=== PATIENT | female | born 1990 | race Hispanic/Latino ===

== ENCOUNTER 2018-06-25 11:55 | Emergency (ER) | payer BC ==
--- OUTSIDE RECORDS SUMMARY | 2018-06-25 11:58 | XMS REPORT | Summary of Care ---
Author Author [facility] Organization [facility] Address Unknown Phone Unavailable Encounter ARYAN Mendez(ALVARADO) [id number] Date(s): 06/10/17 - 06/13/17 [facility] [address] [place] [address]- [phone] Final: Torsion of right fallopian tube Final: Torsion of left ovary and ovarian pedicle Discharge Disposition: Home or Self Care Attending Physician: Maciej Corea MD Admitting Physician: Maciej Corea MD Referring Physician: Maciej Corea MD Vital Signs Most recent to 1 2 3 4 oldest [Reference Range]: Height 162.56 cm (06/10/17 6:50 PM) Temperature Oral 98.4 DegF 98.4 DegF 98.5 DegF [96.4-99.1 DegF] (06/13/17 7:21 AM) (06/13/17 3:57 AM) (06/12/17 11:31 PM) Blood Pressure 96/57 mmHg 96/63 mmHg 93/59 mmHg [90-140/60-90 mmHg] (06/13/17 7:21 AM) (06/13/17 3:57 AM) (06/12/17 11:31 PM) Respiratory Rate 14 BRMIN 16 BRMIN 16 BRMIN [14-20 BRMIN] (06/13/17 7:47 AM) (06/13/17 7:21 AM) (06/13/17 3:57 AM) Peripheral Pulse 78 bpm 77 bpm 84 bpm Rate [60-100 bpm] (06/13/17 7:21 AM) (06/13/17 3:57 AM) (06/12/17 11:31 PM) Weight 53 kg 53 kg 53 kg 53 kg (06/10/17 6:50 PM) (06/10/17 6:49 PM) (06/10/17 6:48 PM) (06/10/17 6:48 PM) Body Mass Index 20.06 m2 (06/10/17 6:50 PM) Problem List Condition Effective Dates Status Health Status Informant S/p Active laparotomy(Confirmed ) (Confirmed) 10/14/15 - 10/20/15 Resolved Allergies, Adverse Reactions, Alerts Substance Reaction Severity Status NKDA Active Medications ceFAZolin (ANES) Route: IV, Drug form: INJ, ONCE, Stop date: 06/10/17 22:20:00 CDT Start Date: 06/10/17 Stop Date: 06/10/17 Status: Completed D5W in Lactated Ringers 1,000 mL 1,000 mL, Rate: 125 ml/hr, Infuse over: 8 hr, Route: IV, Dosing Weight 53 kg, To christopher Volume: 1,000, Start date: 06/10/17 18:49:00 CDT, Duration: 30 day, Stop norma e: 07/10/17 18:48:00 LABOR CONCILIATOR Start Date: 06/10/17 Stop Date: 06/12/17 Status: Discontinued dexamethasone (ANES) Route: IV, Drug form: INJ, ONCE, Stop date: 06/10/17 22:20:00 CDT Start Date: 06/10/17 Stop Date: 06/10/17 Status: Completed ePHEDrine (ANES) Route: IV, Drug form: INJ, ONCE, Stop date: 06/10/17 22:20:00 CDT Start Date: 06/10/17 Stop Date: 06/10/17 Status: Completed fentaNYL (ANES) Route: IV, Drug form: INJ, ONCE, Stop date: 06/10/17 22:20:00 CDT Start Date: 06/10/17 Stop Date: 06/10/17 Status: Completed glycopyrrolate (ANES) Route: IV, Drug form: INJ, ONCE, Stop date: 06/10/17 22:20:00 CDT Start Date: 06/10/17 Stop Date: 06/10/17 Status: Completed Lactated Ringers 1,000 mL 1,000 mL, Rate: 125 ml/hr, Infuse over: 8 hr, Route: IV, Dosing Weight 53 kg, To christopher Volume: 1,000, Start date: 06/10/17 21:46:00 CDT, Duration: 30 day, Stop norma e: 07/10/17 21:45:00 LABOR CONCILIATOR Start Date: 06/10/17 Stop Date: 06/12/17 Status: Discontinued lidocaine (ANES) Route: IV, Drug form: INJ, ONCE, Stop date: 06/10/17 22:20:00 CDT Start Date: 06/10/17 Stop Date: 06/10/17 Status: Completed LR 1000 mL INJ (ANES) Route: IV, Total Volume: 1,000, Start date: 06/10/17 20:36:00 CDT, Stop date: 21:36:00 CDT Start Date: 06/10/17 Stop Date: 06/10/17 Status: Completed Macrobid 100 mg, 1 cap, Route: PO, Drug form: CAP, [id number], Dosing Weight 53, kg, Start d ate: 06/11/17 16:00:00 CDT, Duration: 30 day, Stop date: 07/11/17 4:00:00 LABOR CONCILIATOR Notes: Not recommended for patients with CrCl<50 ml/min (Same as:Macrobid) With food. Start Date: 06/11/17 Stop Date: 06/13/17 Status: Discontinued midazolam (ANES) Route: IV, Drug form: SOLN, ONCE, Stop date: 06/10/17 21:56:00 CDT Start Date: 06/10/17 Stop Date: 06/10/17 Status: Completed MORPhine sulfate FLAME CHANNELER 30 mg/30 ml INJ syringe 30 mg 30 mg, 30 mL, Route: IV, Initial Loading Dose: 2 mg, FLAME CHANNELER Dose: 1 mg, FLAME CHANNELER Lockou t: 10 minutes, Continuous Basal Rate: 0 mg, 4 Hour Limit (In MG): 30, Drug Form: INJ, Continuous, Start date: 06/10/17 22:00:00 CDT, Duration: 30 day, Stop date: 07/10/17... Notes: Dose: Delay: Basal rate: 4hr limit:( Same as:Norrisi-Chris) Start Date: 06/10/17 Stop Date: 06/12/17 Status: Discontinued naloxone 0.04 mg, 0.04 mL, Route: IVP, Drug form: INJ, Q2MIN, Dosing Weight 53, kg, PRN N arcotic Reversal, Start date: 06/10/17 21:46:00 CDT, Duration: 30 day, Stop date : 07/10/17 20:45:00 LABOR CONCILIATOR Notes: (Same as: Devika) MEDICATION WASTE Product Size: 2 mgProduct Was lauren: ___ mg Start Date: 06/10/17 Stop Date: 06/12/17 Status: Discontinued neostigmine (ANES) Route: IV, Drug form: INJ, ONCE, Stop date: 06/10/17 22:20:00 CDT Start Date: 06/10/17 Stop Date: 06/10/17 Status: Completed ondansetron (ANES) Route: IV, Drug form: INJ, ONCE, Stop date: 06/10/17 22:20:00 CDT Start Date: 06/10/17 Stop Date: 06/10/17 Status: Completed propofol (ANES) Route: IV, Drug form: INJ, ONCE, Stop date: 06/10/17 22:20:00 CDT Start Date: 06/10/17 Stop Date: 06/10/17 Status: Completed rocuronium (ANES) Route: IV, Drug form: INJ, ONCE, Stop date: 06/10/17 22:20:00 CDT Start Date: 06/10/17 Stop Date: 06/10/17 Status: Completed sodium chloride 0.9% INJ 250 mL 250 mL, Rate: service representative for use with blood product administration, Dosing Weight 5 3, kg, Route: IV, Total Volume: 250, Start Date: 06/10/17 17:54:00 CDT, Duration : 30 day, Stop date: 07/10/17 17:53:00 LABOR CONCILIATOR, Replace Every: 24 hr Start Date: 06/10/17 Stop Date: 06/13/17 Status: Discontinued succinylcholine (ANES) Route: IV, Drug form: INJ, ONCE, Stop date: 06/10/17 22:20:00 CDT Start Date: 06/10/17 Stop Date: 06/10/17 Status: Completed Tylenol with Codeine #3 oral tablet 2 tab, PO, Q4H, PRN Pain Score 4-6, # 30 tab, 0 Refill(s) Start Date: 06/13/17 Stop Date: 06/13/17 Status: Completed Tylenol with Codeine #3 oral tablet 1 - 2 tablets, PO, Daily, PRN Pain, X 30 day, # 60 tab, 0 Refill(s) Start Date: 06/13/17 Stop Date: 07/13/17 Status: Ordered Tylenol with Codeine #3 oral tablet 2 tab, Route: PO, Drug Form: TAB, Dosing Weight 53, kg, Q4H, PRN Pain Score 4-6, Start date: 06/12/17 9:22:00 CDT, Duration: 30 day, Stop date: 07/12/17 9:21:00 LABOR CONCILIATOR Notes: Do not exceed 4gm/day of acetaminophen. (Same as: Tylenol with Codeine # 3) Start Date: 06/12/17 Stop Date: 06/13/17 Status: Discontinued Zofran 4 mg, 2 mL, Route: IVP, Drug form: INJ, Q4H, Dosing Weight 53, kg, PRN Nausea, S tart date: 06/12/17 12:24:00 CDT, Duration: 30 day, Stop date: 07/12/17 12:23:00 LABOR CONCILIATOR Notes: (Same as: Zofran) MEDICATION WASTE Product Size: 4 mgProduct Was lauren: ___ mg Start Date: 06/12/17 Stop Date: 06/13/17 Status: Discontinued Zofran 4 mg, 2 mL, Route: IVP, Drug form: INJ, Q6H, Dosing Weight 53, kg, PRN Nausea, S tart date: 06/11/17 10:07:00 CDT, Duration: 30 day, Stop date: 07/11/17 10:06:00 LABOR CONCILIATOR Notes: (Same as: Zofran) MEDICATION WASTE Product Size: 4 mgProduct Was lauren: ___ mg Start Date: 06/11/17 Stop Date: 06/12/17 Status: Discontinued Results BLOOD BANK RESULTS Most recent to 1 2 oldest [Reference Range]: ABO/Rh O POS *Unknown* (06/10/17 6:51 PM) Antibody Scrn Negative (06/10/17 6:51 PM) RBC product Product available 1 (06/10/17 5:54 PM) 1Result Comment: 06/10/2017 20:05 [id number] Called to Yareli Hamlin at 06/10/2017 20:05 by Dayna Stock. ELECTROLYTES Most recent to 1 2 oldest [Reference Range]: Sodium Lvl [135-145 138 mEq/L 133 mEq/L mEq/L] (06/11/17 6:48 AM) *LOW* (06/10/17 6:51 PM) Potassium Lvl 3.3 mEq/L 3.9 mEq/L [3.5-5.1 mEq/L] *LOW* (06/10/17 6:51 PM) (06/11/17 6:48 AM) Chloride Lvl [95-109 103 mEq/L 99 mEq/L mEq/L] (06/11/17 6:48 AM) (06/10/17 6:51 PM) CO2 [24-32 mEq/L] 27 mEq/L 25 mEq/L (06/11/17 6:48 AM) (06/10/17 6:51 PM) AGAP [10.0-20.0 11.3 mEq/L 12.9 mEq/L mEq/L] (06/11/17 6:48 AM) (06/10/17 6:51 PM) CHEM PANEL Most recent to 1 2 oldest [Reference Range]: Creatinine Lvl 0.78 mg/dL 0.54 mg/dL [0.50-1.40 mg/dL] (06/11/17 6:48 AM) (06/10/17 6:51 PM) eGFR 105 mL/min/1.73m2 1 131 mL/min/1.73m2 2 *NA* *NA* (06/11/17 7:00 AM) (06/10/17 6:51 PM) BUN [7-22 mg/dL] 8 mg/dL 10 mg/dL (06/11/17 6:48 AM) (06/10/17 6:51 PM) Glucose Lvl [70-99 102 mg/dL 107 mg/dL mg/dL] *HI* *HI* (06/11/17 6:48 AM) (06/10/17 6:51 PM) Calcium Lvl 8.1 mg/dL 8.3 mg/dL [8.5-10.5 mg/dL] *LOW* *LOW* (06/11/17 6:48 AM) (06/10/17 6:51 PM) 1Result Comment: The eGFR is calculated using the CKD-EPI formula. In most young, healthy individuals the eGFR will be >90 mL/min/1.73m2. The eGFR declines with age. An eGFR of 60-89 may be normal in some populations, particularly the elderly, for whom the CKD-EPI formula has not been extensively validated. Use of the eGFR is not recommended in the following populations: Individuals with unstable creatinine concentrations, including patients and those with serious co-morbid conditions. Patients with extremes in muscle mass or diet. The data above are obtained from the National Kidney Disease Education Program ( NKDEP) which additionally recommends that when the eGFR is used in patients with extremes of body mass index for purposes of drug dosing, the eGFR should be mul tiplied by the estimated BMI. 2Result Comment: The eGFR is calculated using the CKD-EPI formula. In most young, healthy individuals the eGFR will be >90 mL/min/1.73m2. The eGFR declines with age. An eGFR of 60-89 may be normal in some populations, particularly the elderly, for whom the CKD-EPI formula has not been extensively validated. Use of the eGFR is not recommended in the following populations: Individuals with unstable creatinine concentrations, including patients and those with serious co-morbid conditions. Patients with extremes in muscle mass or diet. The data above are obtained from the National Kidney Disease Education Program ( NKDEP) which additionally recommends that when the eGFR is used in patients with extremes of body mass index for purposes of drug dosing, the eGFR should be mul tiplied by the estimated BMI. HEMATOLOGY Most recent to 1 2 oldest [Reference Range]: WBC [3.7-10.4 K/CMM] 9.9 K/CMM 7.9 K/CMM (06/11/17 7:00 AM) (06/10/17 6:51 PM) RBC [4.20-5.40 3.63 M/CMM 4.17 M/CMM M/CMM] *LOW* *LOW* (06/11/17 7:00 AM) (06/10/17 6:51 PM) Hgb [12.0-16.0 g/dL] 11.5 g/dL 12.9 g/dL *LOW* (06/10/17 6:51 PM) (06/11/17 7:00 AM) Hct [36.0-48.0 %] 33.4 % 38.4 % *LOW* (06/10/17 6:51 PM) (06/11/17 7:00 AM) MCV [80.0-98.0 fL] 92.1 fL 92.0 fL (06/11/17 7:00 AM) (06/10/17 6:51 PM) MCH [27.0-31.0 pg] 31.6 pg 30.9 pg *HI* (06/10/17 6:51 PM) (06/11/17 7:00 AM) MCHC [32.0-36.0 34.3 g/dL 33.6 g/dL g/dL] (06/11/17 7:00 AM) (06/10/17 6:51 PM) RDW [11.5-14.5 %] 12.6 % 12.5 % (06/11/17 7:00 AM) (06/10/17 6:51 PM) Platelet [133-450 169 K/CMM 175 K/CMM K/CMM] (06/11/17 7:00 AM) (06/10/17 6:51 PM) MPV [7.4-10.4 fL] 9.4 fL 9.8 fL (06/11/17 7:00 AM) (06/10/17 6:51 PM) Segs [45.0-75.0 %] 84.3 % 88.7 % *HI* *HI* (06/11/17 7:00 AM) (06/10/17 6:51 PM) Lymphocytes 8.9 % 8.3 % [20.0-40.0 %] *LOW* *LOW* (06/11/17 7:00 AM) (06/10/17 6:51 PM) Monocytes [2.0-12.0 6.6 % 2.6 % %] (06/11/17 7:00 AM) (06/10/17 6:51 PM) Eosinophils [0.0-4.0 0.1 % %] (06/11/17 7:00 AM) Basophils [0.0-1.0 0.1 % 0.4 % %] (06/11/17 7:00 AM) (06/10/17 6:51 PM) Segs-Bands # 8.3 K/CMM 7.0 K/CMM [1.5-8.1 K/CMM] *HI* (06/10/17 6:51 PM) (06/11/17 7:00 AM) Lymphocytes # 0.9 K/CMM 0.6 K/CMM [1.0-5.5 K/CMM] *LOW* *LOW* (06/11/17 7:00 AM) (06/10/17 6:51 PM) Monocytes # [0.0-0.8 0.6 K/CMM 0.2 K/CMM K/CMM] (06/11/17 7:00 AM) (06/10/17 6:51 PM) Immunizations No data available for this section Procedures No data available for this section Social History Social History Type Response Substance Abuse Use: None. Sexual Sexually active: Yes. Alcohol Previous treatment: None. Smoking Status Never smoker; Type: Cigarettes; Exposure to Tobacco Smoke None; Cigarette Smoking Last 365 Days No; Reg Smoking Cessation Counseling No Assessment and Plan No data available for this section
--- OUTSIDE RECORDS SUMMARY | 2018-06-25 11:58 | XMS REPORT ---
Author Author [facility] Address Unknown Phone Unavailable Care Team Providers Care Public Health Program Manager Name Role Phone Vik MERRITT Unavailable Unavailable Problems This patient has no known problems. Allergies, Adverse Reactions, Alerts This patient has no known allergies or adverse reactions. Medications This patient has no known medications. Results Test Description Test Time Test Comments Text Results Atomic Results Result Comments CT ABDOMEN/PELVIS WO [place] [address] Patient Name: GIULIANA JONES MR #: [id number] : 1990 Age/Sex: 27/F Req #: [id number] Adm Physician: Ordered by: KRYSTAL MERRITT MD Report #: [id number] Location: ER Room/Bed: Procedure: [id number] CT/CT ABDOMEN/PELVIS WO Exam Date: 06/10/17 Exam Time: 09 REPORT STATUS: Signed EXAMINATION: CT of the abdomen and pelvis without contrast. TECHNIQUE: Spiral CT images of the abdomen and pelvis were performed from the lung bases to the lesser trochanters. No intravenous contrast was given per renal stone protocol. Coronal and sagittal reformatted images were obtained. COMPARISON: None. CLINICAL HISTORY:Left flank pain since last night DISCUSSION: ABSENCE OF INTRAVENOUS CONTRAST DECREASES SENSITIVITY FOR DETECTION OF FOCAL LESIONS AND VASCULAR PATHOLOGY. ABDOMEN/PELVIS: LOWER THORAX: Lung bases are clear. HEPATOBILIARY: No focal hepatic lesions. No intra or extrahepatic biliary ductal dilation. GALLBLADDER: No radio-opaque stones or sludge. No wall thickening. SPLEEN: No splenomegaly. PANCREAS: No focal masses or ductal dilatation. ADRE NALS: No adrenal nodules. KIDNEYS/URETERS: No renal or ureteral calculi. No hydronephrosis, hydroureter or evidence of obstruction. No renal contour abnormalities. PELVIC ORGANS/BLADDER: Bladder and uterus are unremarkable. There is an approximately 10.4 x 7.7 x 10.0 cm mass arising from the left ovary and located in the pelvic midline (series 3, image 99), which contains fluid, fat and a few dystrophic calcifications in its anterior aspect (for example series 3, image 99 and sagittal images 60 and 66). Right ovary is unremarkable. PERITONEUM/RETROPERITONEUM: No free air or fluid. LYMPH NODES: No intra-abdominal,retroperitoneal, pelvic or inguinal lymphadenopathy. VESSELS: Unremarkable for noncontrast exam. GI TRACT: No bowel dilation or evidence of obstruction. Appendix is well identified and normal in caliber. BONES AND SOFT TISSUES: No bony destructive lesions. No soft tissue abnormalities. IMPRESSION: 1. No renal, ureteral or bladder calculi. No hydronephrosis or obstruction. 2. Large left ovarian mass located in the pelvic midline measuring 10.4 cm in greatest diameter, with imaging characteristics consistent with a dermoid. Recommend HEAD ANIMAL KEEPER consultation for excision. Signed by: Dr. Brayden Lemus M.D. on 06/10/2017 9:50 AM Dictated By: BRAYDEN LEMUS MD 9 Transcribed By: TUAN on 06/10/1750 COPY TO: KRYSTAL MERRITT MD TRANSVAGINAL [place] [address] Patient Name: GIULIANA JONES MR #: [id number] : 1990 Age/Sex: 27/F Req #: [id number] Adm Physician: Ordered by: KRYSTAL MERRITT MD Report #: [id number] Location: Room/Bed: Procedure: [id number] US/US TRANSVAGINAL Exam Date: Exam Time: REPORT STATUS: Signed EXAM: Transabdominal and Transvaginal Pelvic Ultrasound INDICATION: COMPARISON: CT abdomen and pelvis without contrast 06/10/2017 TECHNIQUE: Grayscale transverse and sagittal transabdominal and transvaginal images were obtained of the pelvis. Transvaginal imaging was medically necessary to better evaluate the endometrium. CLINICAL HISTORY: 27 year old G1, P1; last menstrual period: 05/31/2017. FINDINGS: Uterus: Orientation: Normal Size: 7.5 x 3.7 x 5.4 cm, Normal Mass: None Cervix: Normal Endometrium: Thickness: 0.8 cm, Normal. Appearance: Homogeneous echotexture without focal thickening. Right ovary: Size: 2.8 x 1.9 x 1.9 cm Mass/Cyst: Normal follicles are identified. Normal arterial and venous flow is noted in the right ovary Left ovary: Not visualized, therefore, arterial and venous flow cannot be documented. Adnexa: 8.8 x 7.9 x 9.4 cm cystic, mildly complex structure with internal linear echoes in the left adnexa/midline, corresponding to the previously described thyroid Cul-de-sac: No free fluid IMPRESSION: 1. The left ovary could not be identified, secondary to large dermoid previously described on CT, and therefore arterial and venous flow cannot be assessed. Signed by: Dr. Brayden Lemus M.D. on 06/10/2017 12:13 PM Dictated By: BRAYDEN LEMUS MD 1213 Transcribed By: TUAN on 06/10/17 1213 COPY TO: KRYSTAL MERRITT MD
--- OUTSIDE RECORDS SUMMARY | 2018-06-25 11:58 | XMS REPORT | Summary of Care ---
Author Author [facility] Organization [facility] Address Unknown Phone Unavailable Encounter ARYAN Mendez(ALVARADO) [id number] Date(s): 10/14/15 - 10/14/15 [facility] [address] [place] [address]- Discharge Diagnosis: , obstetrical care Discharge Diagnosis: False labor Discharge Disposition: Home Attending Physician: Rajani Echevarria MD Vital Signs Most recent to 1 2 oldest [Reference Range]: Height 154.94 cm (10/14/15 1:23 PM) Temperature Oral 97.6 DegF 97.3 DegF [96.4-99.1 DegF] (10/14/15 3:21 PM) (10/14/15 1:23 PM) Blood Pressure 102/60 mmHg 117/65 mmHg [90-140/60-90 mmHg] (10/14/15 3:21 PM) (10/14/15 1:23 PM) Respiratory Rate 20 BRMIN 20 BRMIN [14-20 BRMIN] (10/14/15 3:21 PM) (10/14/15 1:23 PM) Peripheral Pulse 81 bpm 75 bpm Rate [60-100 bpm] (10/14/15 3:21 PM) (10/14/15 1:23 PM) Weight 68.182 kg (10/14/15 1:23 PM) Body Mass Index 28.4 m2 (10/14/15 1:23 PM) Problem List Condition Effective Dates Status Health Status Informant (Confirmed) 10/14/15 Active Allergies, Adverse Reactions, Alerts Substance Reaction Severity Status NKDA Active Medications No data available for this section Results No data available for this section Immunizations No data available for this section Procedures No data available for this section Social History Social History Type Response Substance Abuse Use: None. Alcohol Previous treatment: None. Smoking Status Never smoker; Exposure to Tobacco Smoke None; Cigarette Smoking Last 365 Days No; Reg Smoking Cessation Counseling No Assessment and Plan No data available for this section
--- OUTSIDE RECORDS SUMMARY | 2018-06-25 11:58 | XMS REPORT | Summary of Care ---
Author Author [facility] Organization [facility] Address Unknown Phone Unavailable Encounter ARYAN Mendez(ALVARADO) [id number] Date(s): 10/19/15 - 10/22/15 [facility] [address] [place] [address]- Discharge Diagnosis: Normal vaginal delivery Discharge Disposition: Home Attending Physician: Que Kennedy MD Admitting Physician: Que Kennedy MD Vital Signs 1 2 3 Most recent to oldest [Reference Range]: 154.94 cm (10/20/15 1:34 AM) Height 98.6 DegF (10/22/15 12:17 PM) 98.2 DegF (10/22/15 11:00 AM) 98.3 DegF (10/22/15 12:34 AM) Temperature Oral [96.4-99.1 DegF] 102/67 mmHg (10/22/15 12:17 PM) 92/60 mmHg (10/22/15 11:00 AM) 96/61 mmHg (10/22/15 12:34 AM) Blood Pressure [90-140/60-90 mmHg] 20 BRMIN (10/22/15 12:17 PM) 16 BRMIN (10/22/15 11:00 AM) 16 BRMIN (10/22/15 12:34 AM) Respiratory Rate [14-20 BRMIN] 84 bpm (10/22/15 12:17 PM) 80 bpm (10/22/15 11:00 AM) 75 bpm (10/22/15 12:34 AM) Peripheral Pulse Rate [60-100 bpm] 68.182 kg (10/20/15 1:34 AM) Weight 28.4 m2 (10/20/15 1:34 AM) Body Mass Index Problem List Condition Effective Dates Status Health Status Informant (Confirmed) 10/14/15 - 10/20/15 Resolved Allergies, Adverse Reactions, Alerts Substance Reaction Severity Status NKDA Active Medications acetaminophen 650 mg, 2 tab, Route: PO, Drug form: TAB, Q4H, Dosing Weight 68.182, kg, PRN Jessica n Score 1-3, Start date: 10/20/15 15:00:00, Duration: 30 day, Stop date: 6 14:59:00 Notes: Do not exceed 4 gm/day. (Same as: Tylenol) Start Date: 10/20/15 Stop Date: 10/22/15 Status: Discontinued acetaminophen-hydrocodone 325 mg-5 mg oral tablet 1 tab, Route: PO, Drug Form: TAB, Dosing Weight 68.182, kg, Q4H, PRN Pain Score 7-10, Start date: 10/20/15 15:00:00, Duration: 30 day, Stop date: 11/19/15 14:59 :00 Notes: (Same as: [place] 325/5) Do not exceed 4gm/day of acetaminophen. Start Date: 10/20/15 Stop Date: 10/22/15 Status: Discontinued bisacodyl 15 mg, 3 tab, Route: PO, Drug form: ECTAB, Daily, Dosing Weight 68.182, kg, PRN Other -See Comment, Start date: 10/20/15 15:00:00, Duration: 30 day, Stop date: 11/19/15 14:59:00 Notes: (Same As: Dulcolax, Correctol) (Do Not Crush) "Do Not Crush" Start Date: 10/20/15 Stop Date: 10/22/15 Status: Discontinued bisacodyl 10 mg, 1 supp, Route: FL, Drug form: SUPP, PRN, Dosing Weight 68.182, kg, PRN Ot her -See Comment, Start date: 10/20/15 15:00:00, Duration: 30 day, Stop date: 15:59:00 Notes: (Same As: Dulcolax, Bisco-Lax) Start Date: 10/20/15 Stop Date: 10/22/15 Status: Discontinued butorphanol 2 mg, 2 mL, Route: IVP, Drug form: INJ, Q2H, Dosing Weight 68.182, kg, PRN Pain Score 6-10, Start date: 10/20/15 2:12:00, Duration: 30 day, Stop date: 11/19/15 2:11:00 Notes: (Same As: Stadol) Start Date: 10/20/15 Stop Date: 10/20/15 Status: Discontinued butorphanol 1 mg, 1 mL, Route: IVP, Drug form: INJ, Q2H, Dosing Weight 68.182, kg, PRN Pain Score 1-5, Start date: 10/20/15 2:12:00, Duration: 30 day, Stop date: 11/19/15 2 :11:00 Notes: (Same As: Stadol) Start Date: 10/20/15 Stop Date: 10/20/15 Status: Discontinued carboprost 250 microgram, 1 mL, Route: IM, Drug form: INJ, ONCALL, Dosing Weight 68.182, kg , Start date: 10/20/15 3:00:00, Duration: 30 day, Stop date: 11/19/15 3:59:00 Notes: (Same As: Hemabate) Start Date: 10/20/15 Stop Date: 10/20/15 Status: Discontinued citric acid-sodium citrate 30 mL, Route: PO, Drug Form: SOLN, Dosing Weight 68.182, kg, ONCALL, Start date: 10/20/15 3:00:00, Duration: 30 day, Stop date: 11/19/15 3:59:00 Notes: (Same As: Bicitra) Start Date: 10/20/15 Stop Date: 10/20/15 Status: Discontinued Dermoplast 20% topical spray 1 spray, Route: TOP, PRN, Drug form: SPRY, PRN Irritation, Start date: 10/20/15 15:00:00, Duration: 30 day, Stop date: 11/19/15 15:59:00 Notes: (Same As: Dermoplast)WASTE: Aerosol - Return to Pharmacy FOR EXTERNAL US E ONLY Start Date: 10/20/15 Stop Date: 10/22/15 Status: Discontinued diphtheria/pertussis, acel/tetanus adult 2 units-15.5 mcg-5 units/0.5 mL intramu scular suspension 0.5 mL, Route: IM, Drug Form: INJ, Dosing Weight 68.182, kg, ONCALL, Start date: 10/20/15 15:00:00, Duration: 1 doses or times Notes: (Tdap ) For Adolecent and Adult use For IM Use. Same as: Adacel (Tdap) Start Date: 10/20/15 Stop Date: 10/22/15 Status: Discontinued docusate 100 mg, 1 cap, Route: PO, Drug form: CAP, BID, Dosing Weight 68.182, kg, PRN Con stipation, Start date: 10/20/15 15:00:00, Duration: 30 day, Stop date: 11/19/15 14:59:00 Notes: (Same as: Colace) (Do Not Crush) Start Date: 10/20/15 Stop Date: 10/22/15 Status: Discontinued Epifoam rectal foam 1 appl, Route: FL, PRN, Drug form: FOAM, PRN Perineal Care, Start date: 10/20/15 15:00:00, Duration: 30 day, Stop date: 11/19/15 15:59:00 Notes: (Same as: Epifoam)WASTE: Aerosol - Return to Pharmacy Start Date: 10/20/15 Stop Date: 10/22/15 Status: Discontinued famotidine 20 mg, 2 mL, Route: IVP, Drug form: INJ, ONCALL, Dosing Weight 68.182, kg, Start date: 10/20/15 3:00:00, Duration: 30 day, Stop date: 11/19/15 3:59:00 Notes: (Same as: Pepcid)Can be dilute in 5-10cc NS IVP: Slow IV push over at le ast 2 minutes. Start Date: 10/20/15 Stop Date: 10/20/15 Status: Discontinued glycerin-witch eliane topical 10%-50% pad 1 appl, Route: TOP, PRN, Drug form: PAD, PRN Perineal Care, Start date: 10/20/15 15:00:00, Duration: 30 day, Stop date: 11/19/15 15:59:00 Notes: (Same as: Aniket Gallagher PADS) Start Date: 10/20/15 Stop Date: 10/22/15 Status: Discontinued ibuprofen 600 mg, 1 tab, Route: PO, Drug form: TAB, Q6H, Dosing Weight 68.182, kg, PRN Jessica n Score 4-6, Start date: 10/20/15 15:00:00, Duration: 30 day, Stop date: 6 14:59:00 Notes: (Same as: Motrin)"Do Not Crush" Take with food. Start Date: 10/20/15 Stop Date: 10/22/15 Status: Discontinued ibuprofen 800 mg, 1 tab, Route: PO, Drug form: TAB, Q8H, Dosing Weight 68.182, kg, PRN Jessica n Score 7-10, Start date: 10/20/15 15:00:00, Duration: 30 day, Stop date: 14:59:00 Notes: (Same as: Motrin)"Do Not Crush" Take with food. Start Date: 10/20/15 Stop Date: 10/22/15 Status: Discontinued ibuprofen 600 mg oral tablet 600 mg=1 tab, PO, Q6H, PRN Pain Score 4-6, # 30 tab, 0 Refill(s) Start Date: 10/22/15 Status: Ordered Lactated Ringers (Bolus) IV 1,000 mL, 1,000 ml/hr, Infuse Over: 1 hr, Route: IV, 1,000, Drug form: INJ, ONCE , Dosing Weight 68.182 kg, Start date: 10/20/15 2:12:00, Stop date: 10/20/15 2:1 2:00, Bolus for regional anesthesia per unit protocol Start Date: 10/20/15 Stop Date: 10/20/15 Status: Completed Lactated Ringers IV 1,000 mL 1,000 mL, Rate: 100 ml/hr, Infuse over: 10 hr, Route: IV, Dosing Weight 68.182 k g, Total Volume: 1,000, Start date: 10/20/15 15:00:00, Duration: 30 day, Stop da te: 11/19/15 14:59:00 Start Date: 10/20/15 Stop Date: 10/22/15 Status: Discontinued Lactated Ringers IV 1,000 mL 1,000 mL, Rate: 125 ml/hr, Infuse over: 8 hr, Route: IV, Dosing Weight 68.182 kg , Total Volume: 1,000, Start date: 10/20/15 2:12:00, Duration: 30 day, Stop date : 11/19/15 2:11:00 Start Date: 10/20/15 Stop Date: 10/20/15 Status: Discontinued lanolin topical 1 appl, Route: TOP, PRN, Drug form: CRM, PRN Other -See Comment, Start date: 15:00:00, Duration: 30 day, Stop date: 11/19/15 15:59:00 Start Date: 10/20/15 Stop Date: 10/22/15 Status: Discontinued lidocaine 1% 200 mg, 20 mL, Route: PERCUT, Drug Form: INJ, Dosing Weight 68.182, kg, PRN, PRN Other -See Comment, Start date: 10/20/15 2:12:00, Duration: 1 doses or times, S top date: Limited # of times Notes: (Same as: Xylocaine) Start Date: 10/20/15 Stop Date: 10/20/15 Status: Discontinued lidocaine 1% injectable solution 0.25 mL, Route: INTRADERM, Drug Form: INJ, Dosing Weight 68.182, kg, PRN, PRN Ot her -See Comment, Start date: 10/20/15 2:12:00, Duration: 30 day, Stop date: 3:11:00 Notes: Preservative free. (Same as: Xylocaine MPF) Start Date: 10/20/15 Stop Date: 10/20/15 Status: Discontinued M-M-R II 0.5 mL, Route: SUB-Q, Drug Form: PDR/INJ, Dosing Weight 68.182, kg, ONCALL, Give only if patient rubella non-immune, Start date: 10/20/15 15:00:00, Duration: 1 doses or times Notes: (Same as: M-M-R II) (mltsbiz-nutkh-ckegpmc virus vaccine 0.5 ml INJ VL)WA WES: F/P - Red; E -Red GIVE PRIOR TO DISCHARGE Start Date: 10/20/15 Stop Date: 10/22/15 Status: Discontinued methylergonovine 0.2 mg, 1 mL, Route: IM, Drug form: INJ, PRN, Dosing Weight 68.182, kg, PRN Othe r -See Comment, Start date: 10/20/15 15:00:00, Duration: 30 day, Stop date: 10/26 01/09 15:59:00 Notes: (Same as:Methergine) Start Date: 10/20/15 Stop Date: 10/22/15 Status: Discontinued methylergonovine 0.2 mg, 1 mL, Route: IM, Drug form: INJ, ONCALL, Dosing Weight 68.182, kg, Start date: 10/20/15 3:00:00, Duration: 30 day, Stop date: 11/19/15 3:59:00 Notes: (Same as:Methergine) Start Date: 10/20/15 Stop Date: 10/20/15 Status: Discontinued misoprostol 1,000 microgram, 5 tab, Route: FL, Drug form: TAB, ONCALL, Dosing Weight 68.182, kg, Start date: 10/20/15 3:00:00, Duration: 1 doses or times Notes: (Same as:Cytotec) Take with food Start Date: 10/20/15 Stop Date: 10/20/15 Status: Discontinued ondansetron 4 mg, 2 mL, Route: IVP, Drug form: INJ, Q8H, Dosing Weight 68.182, kg, PRN Nause a & Vomiting, Start date: 10/20/15 15:00:00, Duration: 30 day, Stop date: 11/19/15 14:59:00 Notes: (Same as: Fdeerico) MEDICATION WASTE Product Size: 4 mgProduct Was lauren: ___ mg Start Date: 10/20/15 Stop Date: 10/22/15 Status: Discontinued ondansetron 4 mg, 2 mL, Route: IVP, Drug form: INJ, Q8H, Dosing Weight 68.182, kg, PRN Nause a & Vomiting, Start date: 10/20/15 2:12:00, Duration: 30 day, Stop date: 11/19/15 2:11:00 Notes: (Same as: Federico) MEDICATION WASTE Product Size: 4 mgProduct Was lauren: ___ mg Start Date: 10/20/15 Stop Date: 10/20/15 Status: Discontinued oxytocin 30 units in LR 500 mL 30 unit 30 unit, 500 mL, Rate: 42 ml/hr, Infuse over: 11.9 hr, Dosing Weight 68.182, kg, Route: IV, Total Volume: 500 mL, Start date: 10/20/15 15:00:00, Duration: 2 dos es or times, Stop date: 10/21/15 14:47:00, Replace Every: 11.9 hr Notes: (Same as: OXYTOCIN-D5LR) Start Date: 10/20/15 Stop Date: 10/21/15 Status: Completed oxytocin 30 units in LR 500 mL 30 unit 30 unit, 500 mL, Rate: 42 ml/hr, Infuse over: 11.9 hr, Dosing Weight 68.182, kg, Route: IV, Total Volume: 500 mL, Start date: 10/20/15 2:12:00, Duration: 2 day, Stop date: 10/22/15 2:11:00, Replace Every: 11.9 hr Notes: (Same as: OXYTOCIN-D5LR) Start Date: 10/20/15 Stop Date: 10/20/15 Status: Discontinued penicillin G potassium 2,500,000 unit, 50 mL, Route: IVPB, Drug form: INJ, ABXQ4H, Dosing Weight 68.182 , kg, Start date: 10/20/15 7:00:00 Start Date: 10/20/15 Stop Date: 10/20/15 Status: Discontinued penicillin G potassium 5,000,000 units injection + Sodium Chloride 0.9% IV 100 m L 5,000,000 unit, Route: IVPB, ONCALL, Dosing Weight 68.182, kg, Start date: 10/20 3:00:00 Notes: (Same as: Pfizerpen) MEDICATION WASTE Product Size: 5,000,000 un itProduct Wasted: ___ unit Start Date: 10/20/15 Stop Date: 10/20/15 Status: Completed Multivitamins oral tablet 1 tab, Route: PO, Drug Form: TAB, Dosing Weight 68.182, kg, Daily, Start date: 0 10/21/15 9:00:00, Duration: 30 day, Stop date: 11/19/15 9:00:00 Start Date: 10/21/15 Stop Date: 10/22/15 Status: Discontinued terbutaline 0.25 mg, 0.25 mL, Route: SUB-Q, Drug form: INJ, PRN, Dosing Weight 68.182, kg, P RN Other -See Comment, Start date: 10/20/15 2:12:00, Duration: 1 doses or times, Stop date: Limited # of times Notes: DO NOT USE IN [employer] AREA(Same As: Cehr) Start Date: 10/20/15 Stop Date: 10/20/15 Status: Discontinued zolpidem 5 mg, 1 tab, Route: PO, Drug form: TAB, Bedtime, Dosing Weight 68.182, kg, PRN S leep, Start date: 10/20/15 15:00:00, Duration: 30 day, Stop date: 11/19/15 14:59 :00 Notes: (Same As: Karen) Start Date: 10/20/15 Stop Date: 10/22/15 Status: Discontinued Results BLOOD BANK RESULTS Most recent to 08 28 oldest [Reference Range]: ABO/Rh O POS *Unknown* (10/20/15 2:40 AM) Antibody Scrn Negative (10/20/15 2:40 AM) Rhig Reqd See Note 1 (10/20/15 2:40 AM) 1Result Comment: 10/20/2015 03:45 [id number] This patient is not a candidate for Rh(O)D immune globulin. IMMUNOLOGY Most recent to 08 28 oldest [Reference Range]: Treponemal Scr [Non Non Reactive Reactive] (10/20/15 2:40 AM) HIV. [Negative] Negative *NA* (10/20/15 2:40 AM) Rubella IgM <0.90 1 *NA* (10/21/15 4:49 AM) Rubella IgG [>=10.0 11.4 IU/mL IU/mL] (10/20/15 4:00 PM) Hep Bs Ag [Negative] Negative *NA* (10/20/15 2:40 AM) 1Result Comment: REFERENCE RANGE: <0.90 INTERPRETIVE CRITERIA: <0.90 NEGATIVE 0.90-1.09 EQUIVOCAL >or=1.10 POSITIVE Test Performed at: [facility]. [id number] [place] [id number] Serina Quinn MD HEMATOLOGY Most recent to 1 2 oldest [Reference Range]: WBC [3.7-10.4 K/CMM] 8.9 K/CMM (10/20/15 2:40 AM) RBC [4.20-5.40 3.59 M/CMM M/CMM] *LOW* (10/20/15 2:40 AM) Hgb [12.0-16.0 g/dL] 8.0 g/dL 10.3 g/dL *LOW* *LOW* (10/21/15 4:49 AM) (10/20/15 2:40 AM) Hct [36.0-48.0 %] 24.7 % 31.4 % *LOW* *LOW* (10/21/15 4:49 AM) (10/20/15 2:40 AM) MCV [80.0-98.0 fL] 87.3 fL (10/20/15 2:40 AM) MCH [27.0-31.0 pg] 28.7 pg (10/20/15 2:40 AM) MCHC [32.0-36.0 32.8 g/dL g/dL] (10/20/15 2:40 AM) RDW [11.5-14.5 %] 15.0 % *HI* (10/20/15 2:40 AM) Platelet [133-450 143 K/CMM K/CMM] (10/20/15 2:40 AM) MPV [7.4-10.4 fL] 11.7 fL *HI* (10/20/15 2:40 AM) Segs [45.0-75.0 %] 74.4 % (10/20/15 2:40 AM) Lymphocytes 18.0 % [20.0-40.0 %] *LOW* (10/20/15 2:40 AM) Monocytes [2.0-12.0 6.2 % %] (10/20/15 2:40 AM) Eosinophils [0.0-4.0 0.8 % %] (10/20/15 2:40 AM) Basophils [0.0-1.0 0.6 % %] (10/20/15 2:40 AM) Segs-Bands # 6.7 K/CMM [1.5-8.1 K/CMM] (10/20/15 2:40 AM) Lymphocytes # 1.6 K/CMM [1.0-5.5 K/CMM] (10/20/15 2:40 AM) Monocytes # [0.0-0.8 0.6 K/CMM K/CMM] (10/20/15 2:40 AM) Eosinophils # 0.1 K/CMM [0.0-0.5 K/CMM] (10/20/15 2:40 AM) Basophils # [0.0-0.2 0.1 K/CMM K/CMM] (10/20/15 2:40 AM) Immunizations No data available for this section Procedures No data available for this section Social History Social History Type Response Substance Abuse Use: None. Sexual Sexually active: Yes. Alcohol Previous treatment: None. Smoking Status Never smoker; Type: Cigarettes; Exposure to Tobacco Smoke None; Cigarette Smoking Last 365 Days No; Reg Smoking Cessation Counseling No Assessment and Plan Extracted from: Title: OB Discharge Summary, Author: Que Kennedy MD Date: 10/22/15 * Discharge Information The patient is 2 day(s) . Delivery date was 10/22/2015 vaginally. Breast feeding of the infant is effective. The patient's sleep is of good quality. May not resume sexual activity. The contraception plan consists of undecided. Coexisting conditions consist of none. Discharge Plan Discharge Summary Plan Discharge Status: stable. Discharge disposition: discharge to home. Prescriptions: reviewed with patient, written and given to patient. Discharge instructions given: to patient. Extracted from: Title: OB Inpatient Author: Que Kennedy MD Date: 10/22/15 Progress Note * Impression and Plan Condition: Stable. Plan Routine care. Course: Progressing as expected.
--- OUTSIDE RECORDS SUMMARY | 2018-06-25 11:58 | XMS REPORT | Continuity of Care Document ---
Author Author [facility] Interface Address Unknown Phone Unavailable Problems Problem Status Onset Date Classification Date Reported Comments Source DERMOID CYST Active 06/10/2017 [facility] LT OVARIAN TORISON Active 06/10/2017 [facility] Discharge Diagnosis: Normal vaginal delivery 10/20/2015 10/25/2015 [facility] POSSIBLE CONTRACTIONS Active 10/19/2015 [facility] LABOR Active 10/19/2015 [facility] Discharge Diagnosis: , obstetrical care 10/14/2015 10/17/2015 [facility] Discharge Diagnosis: False labor 10/14/2015 10/17/2015 [facility] Resolved 10/14/2015 Problem 06/16/2017 [facility] CONTRACTIONS Active 10/14/2015 [facility] PREGNACY Active 01/13/2015 [facility] Final: Torsion of right fallopian tube 06/16/2017 [facility] Final: Torsion of left ovary and ovarian pedicle 06/16/2017 [facility] S/p laparotomy Active Problem 06/16/2017 [facility] RELATED CONDITIONS, UNSP, UNSP Active [facility] BENIGN NEOPLASM OF UNSPECIFIED OVARY Active [facility] HYPOPITUITARISM Active [facility] TORSION OF LEFT OVARY AND OVARIAN PEDICL Active [facility] Medications Medication Details Route Status Patient Instructions Ordering Provider Order Date Source Acetaminophen 300 MG / Codeine Phosphate 30 MG Oral Tablet [Tylenol with Codeine #3] 2 tab, PO, Q4H, PRN Pain Score 4-6, # 30 tab, 0 Refill(s) Inactive 06/13/2017 [facility] Zofran 4 mg, 2 mL, Route: IVP, Drug form: INJ, Q4H, Dosing Weight 53, kg, PRN Nausea, Start date: 06/12/17 12:24:00 CDT, Duration: 30 day, Stop date: 07/12/17 12:23:00 CSTNotes: (Same as: Zofran) MEDICATION WASTE Product Size: 4 mg Product Wasted: ___ mg No Longer Active 06/12/2017 [facility] Acetaminophen 300 MG / Codeine Phosphate 30 MG Oral Tablet [Tylenol with Codeine #3] 2 tab, Route: PO, Drug Form: TAB, Dosing Weight 53, kg, Q4H, PRN Pain Score 4-6, Start date: 06/12/17 9:22:00 CDT, Duration: 30 day, Stop date: 07/12/17 9:21:00 CSTNotes: Do not exceed 4gm/day of acetam inophen. (Same as: Tylenol with Codeine # 3) No Longer Active 06/12/2017 [facility] Macrobid 100 mg, 1 cap, Route: PO, Drug form: CAP, [id number], Dosing Weight 53, kg, Start date: 06/11/17 16:00:00 CDT, Duration: 30 day, Stop date: 07/11/17 4:00:00 CSTNotes: Not recommended for patients with CrCl No Longer Active 06/11/2017 [facility] Zofran 4 mg, 2 mL, Route: IVP, Drug form: INJ, Q6H, Dosing Weight 53, kg, PRN Nausea, Start date: 06/11/17 10:07:00 CDT, Duration: 30 day, Stop date: 07/11/17 10:06:00 CSTNotes: (Same as: Zofran) MEDICATION WASTE Product Size: 4 mg Product Wasted: ___ mg No Longer Active 06/11/2017 [facility] ePHEDrine (ANES) Route: IV, Drug form: INJ, ONCE, Stop date: 06/10/17 22:20:00 CDT Inactive 06/11/2017 [facility] neostigmine (ANES) Route: IV, Drug form: INJ, ONCE, Stop date: 06/10/17 22:20:00 CDT Inactive 06/11/2017 [facility] ceFAZolin (ANES) Route: IV, Drug form: INJ, ONCE, Stop date: 06/10/17 22:20:00 CDT Inactive 06/11/2017 [facility] ondansetron (ANES) Route: IV, Drug form: INJ, ONCE, Stop date: 06/10/17 22:20:00 CDT Inactive 06/11/2017 [facility] dexamethasone (ANES) Route: IV, Drug form: INJ, ONCE, Stop date: 06/10/17 22:20:00 CDT Inactive 06/11/2017 [facility] glycopyrrolate (ANES) Route: IV, Drug form: INJ, ONCE, Stop date: 06/10/17 22:20:00 CDT Inactive 06/11/2017 [facility] lidocaine (ANES) Route: IV, Drug form: INJ, ONCE, Stop date: 06/10/17 22:20:00 CDT Inactive 06/11/2017 [facility] fentaNYL (ANES) Route: IV, Drug form: INJ, ONCE, Stop date: 06/10/17 22:20:00 CDT Inactive 06/11/2017 [facility] propofol (ANES) Route: IV, Drug form: INJ, ONCE, Stop date: 06/10/17 22:20:00 CDT Inactive 06/11/2017 [facility] rocuronium (ANES) Route: IV, Drug form: INJ, ONCE, Stop date: 06/10/17 22:20:00 CDT Inactive 06/11/2017 [facility] succinylcholine (ANES) Route: IV, Drug form: INJ, ONCE, Stop date: 06/10/17 22:20:00 CDT Inactive 06/11/2017 [facility] Morphine 30 mg, 30 mL, Route: IV, Initial Loading Dose: 2 mg, [employer]IC[employer]PER Dose: 1 mg, [employer] Lockout: 10 minutes, Continuous Basal Rate: 0 mg, 4 Hour Limit (In MG): 30, Drug Form: INJ, Continuous, Start date: 06/10/17 22: 00:00 CDT, Duration: 30 day, Stop date: 07/10/17...Notes: Dose: Delay: Basal rate: 4hr limit: (Same as:[place]) No Longer Active 06/11/2017 [facility] midazolam (ANES) Route: IV, Drug form: SOLN, ONCE, Stop date: 06/10/17 21:56:00 CDT Inactive 06/11/2017 [facility] Naloxone 0.04 mg, 0.04 mL, Route: IVP, Drug form: INJ, Q2MIN, Dosing Weight 53, kg, PRN Narcotic Reversal, Start date: 06/10/17 21:46:00 CDT, Duration: 30 day, Stop date: 07/10/17 20:45:00 CSTNotes: (Same as: Griseldaan) MEDICATION WASTE Product Size: 2 mg Product Wasted: ___ mg No Longer Active 06/11/2017 [facility] Calcium Chloride 0.0014 MEQ/ML / Potassium Chloride 0.004 MEQ/ML / Sodium Chloride 0.103 MEQ/ML / Sodium Lactate 0.028 MEQ/ML Injectable Solution 1,000 mL, Rate: 125 ml/hr, Infuse over: 8 hr, Route: IV, Dosing Weight 53 kg, Total Volume: 1,000, Start date: 06/10/17 21:46:00 CDT, Duration: 30 day, Stop date: 07/10/17 21:45:00 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 Longer Active 06/11/2017 [facility] LR 1000 mL INJ (ANES) Route: IV, Total Volume: 1,000, Start date: 06/10/17 20:36:00 CDT, Stop date: 06/10/17 21:36:00 CDT Inactive 06/11/2017 [facility] D5W in Lactated Ringers 1,000 mL 1,000 mL, Rate: 125 ml/hr, Infuse over: 8 hr, Route: IV, Dosing Weight 53 kg, Total Volume: 1,000, Start date: 06/10/17 18:49:00 CDT, Duration: 30 day, Stop date: 07/10/17 18:48:00 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 Longer Active 06/10/2017 [facility] sodium chloride 0.9% INJ 250 mL 250 mL, Rate: call center dispatcher for use with blood product administration, Dosing Weight 53, kg, Route: IV, Total Volume: 250, Start Date: 06/10/17 17:54:00 CDT, Duration: 30 day, Stop date: 07/10/17 17:53:00 TANBARK LABORER, Replace Every: 24 hr No Longer Active 06/10/2017 [facility] ibuprofen 600 mg oral tablet 600 mg=1 tab, PO, Q6H, PRN Pain Score 4-6, # 30 tab, 0 Refill(s) Active 10/23/2015 [facility] Multivitamins oral tablet 1 tab, Route: PO, Drug Form: TAB, Dosing Weight 68.182, kg, Daily, Start date: 10/21/15 9:00:00, Duration: 30 day, Stop date: 11/19/15 9:00:00 No Longer Active 10/21/2015 [facility] Ibuprofen 600 mg, 1 tab, Route: PO, Drug form: TAB, Q6H, Dosing Weight 68.182, kg, PRN Pain Score 4-6, Start date: 10/20/15 15:00:00, Duration: 30 day, Stop date: 11/19/15 14:59:00Notes: (Same as: Motrin) "Do Not Crush" Take with food. No Longer Active 10/20/2015 [facility] Acetaminophen 325 MG / Hydrocodone Bitartrate 5 MG Oral Tablet 1 tab, Route: PO, Drug Form: TAB, Dosing Weight 68.182, kg, Q4H, PRN Pain Score 7-10, Start date: 10/20/15 15:00:00, Duration: 30 day, Stop date: 11/19/15 14:59:00Notes: (Same as: [place] 325/5) Do not exceed 4gm/day of acetaminophen. No Longer Active 10/20/2015 [facility] Acetaminophen 650 mg, 2 tab, Route: PO, Drug form: TAB, Q4H, Dosing Weight 68.182, kg, PRN Pain Score 1-3, Start date: 10/20/15 15:00:00, Duration: 30 day, Stop date: 11/19/15 14:59:00Notes: Do not exceed 4 gm/day. (Same as: Tylenol) No Longer Active 10/20/2015 [facility] Docusate 100 mg, 1 cap, Route: PO, Drug form: CAP, BID, Dosing Weight 68.182, kg, PRN Constipation, Start date: 10/20/15 15:00:00, Duration: 30 day, Stop date: 11/19/15 14:59:00Notes: (Same as: Colace) (Do Not Crush) No Longer Active 10/20/2015 [facility] Bisacodyl 15 mg, 3 tab, Route: PO, Drug form: ECTAB, Daily, Dosing Weight 68.182, kg, PRN Other -See Comment, Start date: 10/20/15 15:00:00, Duration: 30 day, Stop date: 11/19/15 14:59:00Notes: (Same As: Dulco lax, Correctol) (Do Not Crush) "Do Not Crush" No Longer Active 10/20/2015 [facility] Ondansetron 4 mg, 2 mL, Route: IVP, Drug form: INJ, Q8H, Dosing Weight 68.182, kg, PRN Nausea & Vomiting, Start date: 10/20/15 15:00:00, Duration: 30 day, Stop date: 11/19/15 14:59:00Notes: (Same as: Zofran) MEDICATION WASTE Product Size: 4 mg Product Wasted: ___ mg No Longer Active 10/20/2015 [facility] Witch Mary Kay 500 MG/ML Medicated Pad 1 appl, Route: TOP, PRN, Drug form: PAD, PRN Perineal Care, Start date: 10/20/15 15:00:00, Duration: 30 day, Stop date: 11/19/15 15:59:00Notes: (Same as: Aniket Gallagher PADS) No Longer Active 10/20/2015 [facility] hydrocortisone acetate 10 MG/ML / Pramoxine hydrochloride 10 MG/ML Rectal Cream 1 appl, Route: WV, PRN, Drug form: FOAM, PRN Perineal Care, Start date: 10/20/15 15:00:00, Duration: 30 day, Stop date: 11/19/15 15:59:00Notes: (Same as: Epifoam) WASTE: Aerosol - Return to Pharmacy No Longer Active 10/20/2015 [facility] 0.5 ML Bordetella pertussis filamentous hemagglutinin vaccine, inactivated 0.01 MG/ML / Bordetella pertussis fimbriae 2/3 vaccine, inactivated 0.01 MG/ML / Bordetella pertussis pertactin vaccine, inactivated 0.006 MG/ML / Bordetella pertussis toxoid vacci 0.5 mL, Route: IM, Drug Form: INJ, Dosing Weight 68.182, kg, ONCALL, Start date: 10/20/15 15:00:00, Duration: 1 doses or timesNotes: (Tdap ) For Adolecent and Adult use For IM Use. Same as: Adacel (Tdap) No Longer Active 10/20/2015 [facility] M-M-R II 0.5 mL, Route: SUB-Q, Drug Form: PDR/INJ, Dosing Weight 68.182, kg, ONCALL, Give only if patient rubella non-immune, Start date: 10/20/15 15:00:00, Duration: 1 doses or timesNotes: (Same as: M-M-R II) (coubdxs-oajdz-brtsopp virus vaccine 0.5 ml INJ VL) WASTE: F/P - Red; E -Red GIVE PRIOR TO DISCHARGE No Longer Active 10/20/2015 [facility] Benzocaine 200 MG/ML Topical [place] [Dermoplast] 1 spray, Route: TOP, PRN, Drug form: SPRY, PRN Irritation, Start date: 10/20/15 15:00:00, Duration: 30 day, Stop date: 11/19/15 15:59:00Notes: (Same As: Dermoplast) WASTE: Aerosol - Return to Pharmacy FOR EXTERNAL USE ONLY No Longer Active 10/20/2015 [facility] lanolin topical 1 appl, Route: TOP, PRN, Drug form: CRM, PRN Other -See Comment, Start date: 10/20/15 15:00:00, Duration: 30 day, Stop date: 11/19/15 15:59:00 No Longer Active 10/20/2015 [facility] zolpidem 5 mg, 1 tab, Route: PO, Drug form: TAB, Bedtime, Dosing Weight 68.182, kg, PRN Sleep, Start date: 10/20/15 15:00:00, Duration: 30 day, Stop date: 11/19/15 14:59:00Notes: (Same As: Ambien) No Longer Active 10/20/2015 [facility] Methylergonovine 0.2 mg, 1 mL, Route: IM, Drug form: INJ, PRN, Dosing Weight 68.182, kg, PRN Other -See Comment, Start date: 10/20/15 15:00:00, Duration: 30 day, Stop date: 11/19/15 15:59:00Notes: (Same as:Methergine) No Longer Active 10/20/2015 [facility] Lactated Ringers IV 1,000 mL 1,000 mL, Rate: 100 ml/hr, Infuse over: 10 hr, Route: IV, Dosing Weight 68.182 kg, Total Volume: 1,000, Start date: 10/20/15 15:00:00, Duration: 30 day, Stop date: 11/19/15 14:59:00 No Longer Active 10/20/2015 [facility] Oxytocin 0.06 UNT/ML Injectable Solution 30 unit, 500 mL, Rate: 42 ml/hr, Infuse over: 11.9 hr, Dosing Weight 68.182, kg, Route: IV, Total Volume: 500 mL, Start date: 10/20/15 15:00:00, Duration: 2 doses or times, Stop date: 10/21/15 14:47:00, Replace Every: 11.9 hrNotes: (Same as: OXYTOCIN- D5LR) No Longer Active 10/20/2015 [facility] Penicillin G 2,500,000 unit, 50 mL, Route: IVPB, Drug form: INJ, ABXQ4H, Dosing Weight 68.182, kg, Start date: 10/20/15 7:00:00 Inactive 10/20/2015 [facility] Penicillin G Potassium [id number] UNT/ML Injectable Solution 5,000,000 unit, Route: IVPB, ONCALL, Dosing Weight 68.182, kg, Start date: 10/20/15 3:00:00Notes: (Same as: Pfizerpen) MEDICATION WASTE Product Size: 5,000,000 unit Product Wasted: ___ unit Inactive 10/20/2015 [facility] Carboprost 250 microgram, 1 mL, Route: IM, Drug form: INJ, ONCALL, Dosing Weight 68.182, kg, Start date: 10/20/15 3:00:00, Duration: 30 day, Stop date: 11/19/15 3:59:00Notes: (Same As: Hemabate) Inactive 10/20/2015 [facility] Citric Acid / sodium citrate 30 mL, Route: PO, Drug Form: SOLN, Dosing Weight 68.182, kg, ONCALL, Start date: 10/20/15 3:00:00, Duration: 30 day, Stop date: 11/19/15 3:59:00Notes: (Same As: Bicitra) Inactive 10/20/2015 [facility] Methylergonovine 0.2 mg, 1 mL, Route: IM, Drug form: INJ, ONCALL, Dosing Weight 68.182, kg, Start date: 10/20/15 3:00:00, Duration: 30 day, Stop date: 11/19/15 3:59:00Notes: (Same as:Methergine) Inactive 10/20/2015 [facility] Famotidine 20 mg, 2 mL, Route: IVP, Drug form: INJ, ONCALL, Dosing Weight 68.182, kg, Start date: 10/20/15 3:00:00, Duration: 30 day, Stop date: 11/19/15 3:59:00Notes: (Same as: Pepcid) Can be dilute in 5-10cc NS IVP: Slow IV push over at least 2 minutes. Inactive 10/20/2015 [facility] Misoprostol 1,000 microgram, 5 tab, Route: WV, Drug form: TAB, ONCALL, Dosing Weight 68.182, kg, Start date: 10/20/15 3:00:00, Duration: 1 doses or timesNotes: (Same as:Cytotec) Take with food Inactive 10/20/2015 [facility] Ondansetron 4 mg, 2 mL, Route: IVP, Drug form: INJ, Q8H, Dosing Weight 68.182, kg, PRN Nausea & Vomiting, Start date: 10/20/15 2:12:00, Duration: 30 day, Stop date: 11/19/15 2:11:00Notes: (Same as: Zofran) MEDICATION WASTE Product Size: 4 mg Product Wasted: ___ mg Inactive 10/20/2015 [facility] Terbutaline 0.25 mg, 0.25 mL, Route: SUB-Q, Drug form: INJ, PRN, Dosing Weight 68.182, kg, PRN Other -See Comment, Start date: 10/20/15 2:12:00, Duration: 1 doses or times, Stop date: Limited # of timesNotes: DO NOT USE IN COMMERCIAL LITIGATION PARALEGAL AREA (Same As: Brethine) Inactive 10/20/2015 [facility] lidocaine 1% 200 mg, 20 mL, Route: PERCUT, Drug Form: INJ, Dosing Weight 68.182, kg, PRN, PRN Other -See Comment, Start date: 10/20/15 2:12:00, Duration: 1 doses or times, Stop date: Limited # of timesNotes: (Same as: Xylocaine) Inactive 10/20/2015 [facility] Calcium Chloride 0.0014 MEQ/ML / Potassium Chloride 0.004 MEQ/ML / Sodium Chloride 0.103 MEQ/ML / Sodium Lactate 0.028 MEQ/ML Injectable Solution 1,000 mL, 1,000 ml/hr, Infuse Over: 1 hr, Route: IV, 1,000, Drug form: INJ, ONCE, Dosing Weight 68.182 kg, Start date: 10/20/15 2:12:00, Stop date: 10/20/15 2:12:00, Bolus for regional anesthesia per unit protocol Inactive 10/20/2015 [facility] lidocaine 1% injectable solution 0.25 mL, Route: INTRADERM, Drug Form: INJ, Dosing Weight 68.182, kg, PRN, PRN Other -See Comment, Start date: 10/20/15 2:12:00, Duration: 30 day, Stop date: 11/19/15 3:11:00Notes: Preservative free. (Same as: Xylocaine MPF) Inactive 10/20/2015 [facility] Oxytocin 0.06 UNT/ML Injectable Solution 30 unit, 500 mL, Rate: 42 ml/hr, Infuse over: 11.9 hr, Dosing Weight 68.182, kg, Route: IV, Total Volume: 500 mL, Start date: 10/20/15 2:12:00, Duration: 2 day, Stop date: 10/22/15 2:11:00, Replace Every: 11.9 hrNotes: (Same as: OXYTOCIN-D5LR) Inactive 10/20/2015 [facility] Lactated Ringers IV 1,000 mL 1,000 mL, Rate: 125 ml/hr, Infuse over: 8 hr, Route: IV, Dosing Weight 68.182 kg, Total Volume: 1,000, Start date: 10/20/15 2:12:00, Duration: 30 day, Stop date: 11/19/15 2:11:00 Inactive 10/20/2015 [facility] Butorphanol 2 mg, 2 mL, Route: IVP, Drug form: INJ, Q2H, Dosing Weight 68.182, kg, PRN Pain Score 6-10, Start date: 10/20/15 2:12:00, Duration: 30 day, Stop date: 11/19/15 2:11:00Notes: (Same As: Stadol) Inactive 10/20/2015 [facility] Allergies, Adverse Reactions, Alerts Substance Category Reaction Severity Reaction type Status Date Reported Comments Source Immunizations Immunization Date Given Site Status Last Updated Comments Source Results Order Name Results Value Reference Range Date Interpretation Comments Source ELECTROLYTES eGFR 105 mL/min/1.73m2 06/11/2017 Result Comment: The eGFR is calculated using the [...] from the National Kidney Disease Education Program (NKDEP) which additionally recommends that when the eGFR is used in patients with extremes of body mass index for purposes of drug dosing, the eGFR should be multiplied by the estimated BMI. [facility] Hct 33.4 % 36.0 - 48.0 06/11/2017 [facility] Hgb 11.5 g/dL 12.0 - 16.0 06/11/2017 [facility] MCHC 34.3 g/dL 32.0 - 36.0 06/11/2017 [facility] RDW 12.6 % 11.5 - 14.5 06/11/2017 [facility] MCV 92.1 fL 80.0 - 98.0 06/11/2017 [facility] MCH 31.6 pg 27.0 - 31.0 06/11/2017 [facility] WBC 9.9 K/CMM 3.7 - 10.4 06/11/2017 [facility] RBC 3.63 M/CMM 4.20 - 5.40 06/11/2017 [facility] MPV 9.4 fL 7.4 - 10.4 06/11/2017 [facility] Platelet 169 K/CMM 133 - 450 06/11/2017 [facility] Lymphocytes # 0.9 K/CMM 1.0 - 5.5 06/11/2017 [facility] Monocytes # 0.6 K/CMM 0.0 - 0.8 06/11/2017 [facility] Segs-Bands # 8.3 K/CMM 1.5 - 8.1 06/11/2017 [facility] Basophils 0.1 % 0.0 - 1.0 06/11/2017 [facility] Eosinophils 0.1 % 0.0 - 4.0 06/11/2017 [facility] HEMATOLOGY Lymphocytes 8.9 % 20.0 - 40.0 06/11/2017 [facility] HEMATOLOGY Monocytes 6.6 % 2.0 - 12.0 06/11/2017 [facility] HEMATOLOGY Segs 84.3 % 45.0 - 75.0 06/11/2017 [facility] ELECTROLYTES Sodium Lvl 138 meq/L 135 - 145 06/11/2017 [facility] ELECTROLYTES Potassium Lvl 3.3 meq/L 3.5 - 5.1 06/11/2017 [facility] ELECTROLYTES BUN 8 mg/dL 7 - 22 06/11/2017 [facility] ELECTROLYTES Creatinine Lvl 0.78 mg/dL 0.50 - 1.40 06/11/2017 [facility] ELECTROLYTES Calcium Lvl 8.1 mg/dL 8.5 - 10.5 06/11/2017 [facility] ELECTROLYTES Chloride Lvl 103 meq/L 95 - 109 06/11/2017 [facility] ELECTROLYTES CO2 27 meq/L 24 - 32 06/11/2017 [facility] ELECTROLYTES AGAP 11.3 meq/L 10.0 - 20.0 06/11/2017 [facility] ELECTROLYTES Glucose Lvl 102 mg/dL 70 - 99 06/11/2017 [facility] BLOOD BANK RESULTS Antibody Scrn Negative (06/10/17 6:51 PM) 06/10/2017 [facility] BLOOD BANK RESULTS ABO/Rh O POS 06/10/2017 [facility] CHEM PANEL eGFR 131 mL/min/1.73m2 06/10/2017 Result Comment: The eGFR is calculated using the [...] from the National Kidney Disease Education Program (NKDEP) which additionally recommends that when the eGFR is used in patients with extremes of body mass index for purposes of drug dosing, the eGFR should be multiplied by the estimated BMI. [facility] CHEM PANEL Glucose Lvl 107 mg/dL 70 - 99 06/10/2017 [facility] CHEM PANEL Creatinine Lvl 0.54 mg/dL 0.50 - 1.40 06/10/2017 [facility] CHEM PANEL Potassium Lvl 3.9 meq/L 3.5 - 5.1 06/10/2017 [facility] CHEM PANEL BUN 10 mg/dL 7 - 22 06/10/2017 [facility] CHEM PANEL Sodium Lvl 133 meq/L 135 - 145 06/10/2017 [facility] CHEM PANEL Calcium Lvl 8.3 mg/dL 8.5 - 10.5 06/10/2017 [facility] CHEM PANEL Chloride Lvl 99 meq/L 95 - 109 06/10/2017 [facility] CHEM PANEL CO2 25 meq/L 24 - 32 06/10/2017 [facility] CHEM PANEL AGAP 12.9 meq/L 10.0 - 20.0 06/10/2017 [facility] HEMATOLOGY Monocytes # 0.2 K/CMM 0.0 - 0.8 06/10/2017 [facility] HEMATOLOGY Segs-Bands # 7.0 K/CMM 1.5 - 8.1 06/10/2017 [facility] HEMATOLOGY Lymphocytes # 0.6 K/CMM 1.0 - 5.5 06/10/2017 [facility] HEMATOLOGY Segs 88.7 % 45.0 - 75.0 06/10/2017 [facility] HEMATOLOGY Basophils 0.4 % 0.0 - 1.0 06/10/2017 [facility] HEMATOLOGY Lymphocytes 8.3 % 20.0 - 40.0 06/10/2017 [facility] HEMATOLOGY Monocytes 2.6 % 2.0 - 12.0 06/10/2017 [facility] HEMATOLOGY RBC 4.17 M/CMM 4.20 - 5.40 06/10/2017 [facility] HEMATOLOGY Hgb 12.9 g/dL 12.0 - 16.0 06/10/2017 [facility] HEMATOLOGY Hct 38.4 % 36.0 - 48.0 06/10/2017 [facility] HEMATOLOGY MCHC 33.6 g/dL 32.0 - 36.0 06/10/2017 [facility] HEMATOLOGY MPV 9.8 fL 7.4 - 10.4 06/10/2017 [facility] HEMATOLOGY MCV 92.0 fL 80.0 - 98.0 06/10/2017 [facility] HEMATOLOGY MCH 30.9 pg 27.0 - 31.0 06/10/2017 [facility] HEMATOLOGY RDW 12.5 % 11.5 - 14.5 06/10/2017 [facility] HEMATOLOGY Platelet 175 K/CMM 133 - 450 06/10/2017 [facility] WBC 7.9 K/CMM 3.7 - 10.4 06/10/2017 [facility] BLOOD BANK RESULTS RBC product Product available 1 (06/10/17 5:54 PM) 06/10/2017 Result Comment: 06/10/2017 20:05 [id number] Called to Yareli Hamlin at 06/10/2017 20:05 by Dayna Stock. [facility] Hct 24.7 % 36.0 - 48.0 10/21/2015 [facility] Hgb 8.0 g/dL 12.0 - 16.0 10/21/2015 [facility] Rubella IgM null 10/21/2015 Result Comment: REFERENCE RANGE: <0.90 INTERPRETIVE CRITERIA: <0.90 NEGATIVE 0.90-1.09 EQUIVOCAL >or=1.10 POSITIVE Test Performed at: [facility] [address] [place] [id number] Serina Quinn MD [facility] Rubella IgG 11.4 [iU]/mL >=10.0 IU/mL 10/20/2015 [facility] BLOOD [facility] RESULTS Rhig Reqd See Note 1 (10/20/15 2:40 AM) 10/20/2015 Result Comment: 10/20/2015 03:45 [id number] This patient is not a candidate for Rh(O)D immune globulin. [facility] BLOOD BANK RESULTS ABO/Rh O POS 10/20/2015 [facility] BLOOD [facility] RESULTS Antibody Scrn Negative (10/20/15 2:40 AM) 10/20/2015 [facility] WBC 8.9 K/CMM 3.7 - 10.4 10/20/2015 [facility] RBC 3.59 M/CMM 4.20 - 5.40 10/20/2015 [facility] MCV 87.3 fL 80.0 - 98.0 10/20/2015 [facility] Hct 31.4 % 36.0 - 48.0 10/20/2015 [facility] Hgb 10.3 g/dL 12.0 - 16.0 10/20/2015 [facility] MCH 28.7 pg 27.0 - 31.0 10/20/2015 [facility] RDW 15.0 % 11.5 - 14.5 10/20/2015 [facility] MCHC 32.8 g/dL 32.0 - 36.0 10/20/2015 [facility] HEMATOLOGY MPV 11.7 fL 7.4 - 10.4 10/20/2015 [facility] HEMATOLOGY Platelet 143 K/CMM 133 - 450 10/20/2015 [facility] HEMATOLOGY Segs 74.4 % 45.0 - 75.0 10/20/2015 [facility] HEMATOLOGY Lymphocytes 18.0 % 20.0 - 40.0 10/20/2015 [facility] HEMATOLOGY Basophils # 0.1 K/CMM 0.0 - 0.2 10/20/2015 [facility] HEMATOLOGY Eosinophils # 0.1 K/CMM 0.0 - 0.5 10/20/2015 [facility] HEMATOLOGY Monocytes # 0.6 K/CMM 0.0 - 0.8 10/20/2015 [facility] HEMATOLOGY Basophils 0.6 % 0.0 - 1.0 10/20/2015 [facility] HEMATOLOGY Eosinophils 0.8 % 0.0 - 4.0 10/20/2015 [facility] HEMATOLOGY Monocytes 6.2 % 2.0 - 12.0 10/20/2015 [facility] HEMATOLOGY Segs-Bands # 6.7 K/CMM 1.5 - 8.1 10/20/2015 [facility] HEMATOLOGY Lymphocytes # 1.6 K/CMM 1.0 - 5.5 10/20/2015 [facility] IMMUNOLOGY Treponemal Scr Non Reactive (10/20/15 2:40 AM) Non Reactive 10/20/2015 [facility] IMMUNOLOGY Hep Bs Ag Negative *NA* (10/20/15 2:40 AM) Negative 10/20/2015 [facility] IMMUNOLOGY HIV. Negative *NA* (10/20/15 2:40 AM) Negative 10/20/2015 [facility] Vital Signs Vital Sign Value Date Comments Source Respitory Rate 14 06/13/2017 [facility] Systolic (mm Hg) 96 06/13/2017 [facility] Diastolic (mm Hg) 57 06/13/2017 [facility] Heart Rate 78 06/13/2017 [facility] Respitory Rate 16 06/13/2017 [facility] Temperature Oral (F) 98.4 F 06/13/2017 [facility] Heart Rate 77 06/13/2017 [facility] Temperature Oral (F) 98.4 F 06/13/2017 [facility] Respitory Rate 16 06/13/2017 [facility] Systolic (mm Hg) 96 06/13/2017 [facility] Diastolic (mm Hg) 63 06/13/2017 [facility] Systolic (mm Hg) 93 06/13/2017 [facility] Diastolic (mm Hg) 59 06/13/2017 [facility] Heart Rate 84 06/13/2017 [facility] Temperature Oral (F) 98.5 F 06/13/2017 [facility] Weight 53 06/10/2017 [facility] Height 162.56 cm 06/10/2017 [facility] BMI Calculated 20.06 06/10/2017 [facility] Weight 53 06/10/2017 [facility] Weight 53 06/10/2017 [facility] Temperature Oral (F) 98.6 F 10/22/2015 [facility] Systolic (mm Hg) 102 10/22/2015 [facility] Diastolic (mm Hg) 67 10/22/2015 [facility] Heart Rate 84 10/22/2015 [facility] Respitory Rate 20 10/22/2015 [facility] Respitory Rate 16 10/22/2015 [facility] Rate 80 10/22/2015 [facility] Temperature Oral (F) 98.2 F 10/22/2015 [facility] Systolic (mm Hg) 92 10/22/2015 [facility] Diastolic (mm Hg) 60 10/22/2015 [facility] Systolic (mm Hg) 96 10/22/2015 [facility] Diastolic (mm Hg) 61 10/22/2015 [facility] Respitory Rate 16 10/22/2015 [facility] Heart Rate 75 10/22/2015 [facility] Temperature Oral (F) 98.3 F 10/22/2015 [facility] Weight 68.182 10/20/2015 [facility] BMI Calculated 28.4 10/20/2015 [facility] Height 154.94 cm 10/20/2015 [facility] Respitory Rate 20 10/14/2015 [facility] Heart Rate 81 10/14/2015 [facility] Temperature Oral (F) 97.6 F 10/14/2015 [facility] Systolic (mm Hg) 102 10/14/2015 [facility] Diastolic (mm Hg) 60 10/14/2015 [facility] Height 154.94 cm 10/14/2015 [facility] Weight 68.182 10/14/2015 [facility] BMI Calculated 28.4 10/14/2015 [facility] Temperature Oral (F) 97.3 F 10/14/2015 [facility] Respitory Rate 20 10/14/2015 [facility] Systolic (mm Hg) 117 10/14/2015 [facility] Diastolic (mm Hg) 65 10/14/2015 [facility] Heart Rate 75 10/14/2015 [facility] Encounters Location Location Details Encounter Type Encounter Number Reason For Visit Attending Provider ADM Date DC Date Status Source [facility] [id number] Rajani Wale 10/14/2015 10/14/2015 [facility] Inpatient [id number] Que Kennedy 10/20/2015 10/23/2015 [id number] Inpatient [id number] Maciej Corea 06/10/2017 06/13/2017 [facility] Procedures Procedure Code Date Perfomer Comments Source
--- OUTSIDE RECORDS SUMMARY | 2018-06-25 11:58 | XMS REPORT | Summary of Care ---
Author Author [facility] Organization [facility] Address Unknown Phone Unavailable Encounter [facility] Hemant[employer]_ana maria(FIN) [id number] Date(s): 10/21/15 - 10/21/15 [facility] [address] [place] [address]- Attending Physician: Que Kennedy MD Admitting Physician: Que Kennedy MD Vital Signs No data available for this section Problem List Condition Effective Dates Status Health [...]
== END 2018-06-25 12:06 | disposition left against medical advice (07) ==
LOC: ER 11:55
DX: R10.9 Unspecified abdominal pain (principal)